=== PATIENT | male | born 1980 | race Caucasian/White ===

== ENCOUNTER 2019-04-16 15:33 | Emergency (ER) | payer BC, OTHER ==
[~2019-04-16] VITALS: Ht 172.7 cm; Wt 63.5 kg
--- NOTE | 2019-04-16 15:48 | NUR ---
PT SENT TO LOBBY TO WAIT FOR AVAILABLE BED.
[2019-04-16 15:49] VITALS: BP 126/84
--- NOTE | 2019-04-16 15:50 | NUR ---
PATIENT PRESENTS TO ED WITH COMPLAINT OF VOMITING SINCE YESTERDAY. REPORTS WEAKNESS. REPORTS THROAT PAIN FROM VOMITING. BLOOD GLUCOSE 309, HR 113. DENIES FEVER, DIARRHEA, CONTIPATION OR DYSURIA.SKIN IS PINK/WARM/DRY; AAOX4 WITH EVEN AND STEADY GAIT; LUNGS CLEAR BL; HR EVEN AND REGULAR; PT DENIES ANY FEVER, CP, SOB, OR COUGH AT THIS TIME; PATIENT STATES PAIN OF 9/10 AT THIS TIME; VSS; PATIENT POSITIONED FOR COMFORT; HOB ELEVATED; BEDRAILS UP X2; BED DOWN. ER MD MADE AWARE OF PT STATUS. HX DM RX METFORMIN
--- NOTE | 2019-04-16 16:23 | NUR ---
PT TAKEN TO BED 3.
[2019-04-16] MEDS ORDERED: NACL 0.9% 2,000 ML IV SCH (16:42)
[2019-04-16] MEDS ORDERED: NACL 0.9% 1,000 ML IV ONE (16:42)
--- NOTE | 2019-04-16 16:44 | NUR ---
Dr. Carpenter evaluating patient at bedside.
[2019-04-16] MEDS ORDERED: METOCLOPRAMIDE 10 MG/2 ML INJ VIAL IVP ONE (16:45)
[2019-04-16] MEDS ORDERED: ONDANSETRON 4 MG/2 ML VIAL IVP ONE (16:45)
[2019-04-16] MEDS ORDERED: FAMOTIDINE 20 MG/2 ML VIAL IVP ONE (16:45)
--- NOTE | 2019-04-16 17:00 | NUR ---
pest control technician at bedside.
[2019-04-16 17:29] LABS: BASOPHILS % (AUTO) 0.3 % (0.0-2.0); EOSINOPHILS % (AUTO) 0.1 % (0.0-4.0); HEMOGLOBIN 14.4 g/dL (12.0-18.0); LYMPHOCYTES # (AUTO) 1.3 K/uL (2.0-11.5); LYMPHOCYTES % (AUTO) 8.6 % (20.5-51.1); MEAN CORPUSCULAR HEMOGLOBIN 29 pg (27-31); MEAN CORPUSCULAR HGB CONC 34 g/dL (33-37); MEAN CORPUSCULAR VOLUME 85.7 fL (80-94); MONOCYTES # (AUTO) 0.8 K/uL (0.8-1.0); MONOCYTES % (AUTO) 5.5 % (1.7-9.3); NEUTROPHILS % (AUTO) 85.5 % (42.2-75.2); PLATELET COUNT (AUTO) 360 K/uL (140-450); RED BLOOD CELL COUNT(AUTO) 5.02 MIL/uL (4.20-6.10); RED CELL DISTRIBUTION WIDTH 13.3 % (11.6-13.7); WHITE BLOOD COUNT (AUTO) 15.2 K/uL (4.8-10.8)
--- NOTE | 2019-04-16 17:44 | NUR ---
Patient returned from CT scan. RN re-evaluating patient at bedside.
[2019-04-16 18:05] LABS: CARBON DIOXIDE 31.1 mmol/L (21-32); CHLORIDE 98 mmol/L (98-107); CREATININE 1.2 mg/dL (0.7-1.3); GFR ARICAN-AMERICAN 88 mL/min (>90); GLUCOSE 364 mg/dL (74-106); POTASSIUM 4.1 mmol/L (3.5-5.1); SODIUM SERUM 142 mmol/L (136-145); UREA NITROGEN, BLOOD 33 mg/dL (7-18)
[2019-04-16 18:07] LABS: ACETONE, SERUM NEGATIVE (NEGATIVE)
[2019-04-16 18:10] LABS: ALBUMIN 4.1 g/dL (3.4-5.0); AMYLASE 67 U/L (25-115); ASPARTATE AMINOTRANSFERASE 14 U/L (15-37); LIPASE 72 U/L (73-393); MAGNESIUM 2.6 mg/dL (1.8-2.4); TOTAL BILIRUBIN 0.7 mg/dL (0.0-1.0)
[2019-04-16 18:32] LABS: APPEARANCE,URINE CLEAR (CLEAR); BILIRUBIN,URINE NEGATIVE (NEGATIVE); BLOOD, URINE 1+ (NEGATIVE); LEUKOCYTE ESTERASE ,URINE NEGATIVE (NEGATIVE); NITRITE, URINE NEGATIVE (NEGATIVE); UGLUCOSE 3+ (NEGATIVE)
[2019-04-16 18:34] LABS: BARBITURATE, URINE NEG. ng/ml (NEG <=200); BENZODIAZEPINE, URINE NEG. ng/mL (NEG <=200); CANNABINOID, URINE NEG. ng/mL (NEG <=50); COCAINE, URINE NEG. ng/mL (NEG <=300); OPIATE, URINE NEG. ng/mL (NEG <=2000); PHENCYCLIDINE SCREEN,URINE NEG. ng/mL (NEG <=25)
[2019-04-16 18:38] LABS: COLOR,URINE STRAW (YELLOW)
[2019-04-16 18:39] LABS: RBC,URINE NONE SEEN /HPF (0-5); WBC,URINE NONE SEEN /HPF (0-5)
[2019-04-16 19:06] VITALS: BP 124/82
--- NOTE | 2019-04-16 19:08 | NUR ---
Patient discharged with v/s stable. Written and verbal after care instructions given and explained. Patient alert, oriented and verbalized understanding of instructions. Ambulatory with steady gait. All questions addressed prior to discharge. ID band removed. Patient advised to follow up with PMD. Rx of REGLAN given. Patient educated on indication of medication including possible reaction and side effects. Opportunity to ask questions provided and answered.
== END 2019-04-16 19:07 | disposition home or self-care (01) ==
LOC: MED 15:33
DX: E11.43 Type 2 diabetes mellitus with diabetic autonomic (poly)neuropathy (principal); K31.84 Gastroparesis; E11.65 Type 2 diabetes mellitus with hyperglycemia
CPT/HCPCS: 36415; 36600; 71045; 74176; 80053; 80305; 81001; 82009; 82150; 82803; 83036; 83605; 83690; 83735; 85025; 86140; 96361; 96374; 96375; 99284; G0482; J2405; J2765; J3490; J7030; Q0092

== ENCOUNTER 2019-06-21 17:46 | Inpatient (IN) | payer BC, OTHER ==
[~2019-06-21] VITALS: Ht 172.7 cm; Wt 74.8 kg
[2019-06-21 17:54] VITALS: BP 122/76
--- NOTE | 2019-06-21 17:59 | NUR ---
PT PLACED IN BED 5 BY EMS.
[2019-06-21] MEDS ORDERED: NACL 0.9% 2,000 ML IV ONE (18:05)
--- NOTE | 2019-06-21 18:10 | NUR ---
PT BIBA C/O GENERALIZED WEAKNESS, SORE THROAT, AND N/V X THIS MORNING. BS 513 UPON ARRIVAL. MEDHX:DM RX:METFORMIN
[2019-06-21] MEDS ORDERED: NACL 0.9% 1,000 ML IV SCH (18:19)
[2019-06-21] MEDS ORDERED: ONDANSETRON 4 MG/2 ML VIAL IVP ONE (18:20)
--- NOTE | 2019-06-21 18:26 | NUR ---
PROVIDED PT WITH URINAL
--- NOTE | 2019-06-21 19:20 | NUR ---
RECEIVED REPORT FROM GEOVANNA MANLEY.
[2019-06-21 19:25] LABS: BASOPHILS % (AUTO) 0.1 % (0.0-2.0); HEMATOCRIT 39.6 % (36-52); HEMOGLOBIN 13.2 g/dL (12.0-18.0); LYMPHOCYTES # (AUTO) 0.9 K/uL (2.0-11.5); LYMPHOCYTES % (AUTO) 5.4 % (20.5-51.1); MEAN CORPUSCULAR HEMOGLOBIN 28 pg (27-31); MEAN CORPUSCULAR HGB CONC 33 g/dL (33-37); MEAN CORPUSCULAR VOLUME 84.7 fL (80-94); MONOCYTES # (AUTO) 1.1 K/uL (0.8-1.0); MONOCYTES % (AUTO) 6.6 % (1.7-9.3); NEUTROPHILS # (AUTO) 14.7 K/uL (1.8-7.7); NEUTROPHILS % (AUTO) 87.9 % (42.2-75.2); PLATELET COUNT (AUTO) 345 K/uL (140-450); RED BLOOD CELL COUNT(AUTO) 4.67 MIL/uL (4.20-6.10); RED CELL DISTRIBUTION WIDTH 13.1 % (11.6-13.7); WHITE BLOOD COUNT (AUTO) 16.7 K/uL (4.8-10.8)
--- NOTE | 2019-06-21 19:30 | NUR ---
RECEIVED PT AND PT'S SISTER AT BEDSIDE. WITH ENDORSEMENT FROM CONCEPCION ADAM NURSE THAT USD ABDOMEN IS TO BE DONE. ORDER WAS JUST PLACED RECENTLY AT 0730 PM.+COMPLAINED RECEIVED FROM PT THAT NOTHING WAS DONE TO THEM SINCE THIS MORNING, PT UNCOOPERATIVE BUT ABLE TO TALK TO PT AWAKE, ALERT ORIENTED X 3. AND THAT PT IS STILL VOMITING. W/ IV ON LEFT AC G 22, LR AT 80CC/HR, INFUSING WELL. Addendum: 06/22/19 at 7695 by Vivian Pérez RN DELETE NOTE
[2019-06-21 19:49] LABS: ALBUMIN 3.4 g/dL (3.4-5.0); ANION GAP 18.7 (8-16); CARBON DIOXIDE 28.5 mmol/L (21-32); CREATININE 1.3 mg/dL (0.7-1.3); POTASSIUM 4.2 mmol/L (3.5-5.1); TOTAL BILIRUBIN 0.6 mg/dL (0.0-1.0)
[2019-06-21] MEDS ORDERED: NACL 0.9% 1,000 ML IV ONE ×3 (20:10→23:15)
[2019-06-21] MEDS ORDERED: cefTRIAXone 1,000 MG VIAL ONE (20:23)
[2019-06-21] MEDS ORDERED: INSULIN REGULAR, HUMAN 100 UNIT/ML VIAL SUBQ ONE (20:25)
--- NOTE | 2019-06-21 20:53 | NUR ---
X-Ray at bedside.
[2019-06-21 21:34] LABS: APPEARANCE,URINE CLEAR (CLEAR); BILIRUBIN,URINE NEGATIVE (NEGATIVE); BLOOD, URINE 1+ (NEGATIVE); COLOR,URINE YELLOW (YELLOW); LEUKOCYTE ESTERASE ,URINE NEGATIVE (NEGATIVE); NITRITE, URINE NEGATIVE (NEGATIVE); PH,URINE 5.5 (5.0-9.0); UGLUCOSE 3+ (NEGATIVE)
[2019-06-21 21:38] LABS: RBC,URINE 0-5 /HPF (0-5); WBC,URINE 0 /HPF (0-5)
[2019-06-21 21:39] LABS: HYALINE CASTS, URINE 0-10 /LPF (None Seen)
[2019-06-21] MEDS ORDERED: DEXTROSE 50% 50 ML SYR IVP PRN ×2 (22:30→23:15)
[2019-06-21] MEDS ORDERED: MORPHINE SULFATE 2 MG/ML SYR IVP PRN (22:30)
[2019-06-21] MEDS ORDERED: LEVOFLOXACIN 500 MG/D5W PREMIX 100 ML IV SCH (22:30)
[2019-06-21] MEDS ORDERED: INSULIN LISPRO SLIDING SCALE 100 UNITS/ML VIAL SUBQ PRN (22:30)
[2019-06-21] MEDS ORDERED: ONDANSETRON 4 MG/2 ML VIAL IVP PRN (22:30)
[2019-06-21] MEDS ORDERED: ACETAMINOPHEN 325 MG TAB PO PRN ×2 (22:30→23:15)
[2019-06-21] MEDS ORDERED: POTASSIUM CHL 20 MEQ/NACL 0.9% 1,000 ML IV ONE ×2 (22:40→23:15)
--- NOTE | 2019-06-21 22:42 | NUR ---
PT LAYING IN BED, FAMILY AT BEDSIDE, PT SLEEPING, AROUSABLE TO NAME, RR EVEN AND UNLABORED. VSS. ALL NEEDS MET.
--- NOTE | 2019-06-21 23:10 | NUR ---
RECEIVED BEDSIDE REPORT FROM ED NURSE EMETERIO. PATIENT ARRIVED TO UNIT VIA GURNEY WITH FAMILY MEMBERS AT BEDSIDE. PATIENT IS AMBULATORY WITH ASSIST. NO SOB OR DISTRESS NOTED. ON ROOM AIR. IV ACCESS ON LEFT AC 22 GAUGE AND RIGHT AC 20 GAUGE. PATENT AND INTACT. INITIAL ASSESSMENT DONE. INITIAL VITALS DONE. MRSA SWAB DONE AND SENT TO LAB. BOARD UPDATED. PATIENT ORIENTED TO ROOM. BED IN LOW, SAFETY MEASURES IN PLACE. CALL LIGHT PLACED WITHIN PATIENT REACH. WILL CONTINUE TO MONITOR PATIENT.
--- NOTE | 2019-06-21 23:10 | NUR ---
Patient will be admitted to care of DR. SCOTT . Admited to TELE. Will go to room 111A . Belongings list completed. Report to GEOVANNA HUTCHINSON .
[2019-06-21] MEDS: LEVOFLOXACIN 500 MG/D5W PREMIX 100 ML IV SCH (23:43)
[2019-06-22] VITALS: BP 128/74
--- NOTE | 2019-06-22 00:10 | NUR ---
SPOKE WITH DR. ASH OVER THE PHONE. NEW ORDER FOR CCHO 60 GRAM DIET AND FOR POTASSIUM CHLORIDE 20MEQ IN NaCl 0.9% 1,000ml IV TO BE SCHEDULED CONTINUOUS INSTEAD OF A ONE TIME DOSE. ORDERS CARRIED OUT.
[2019-06-22] MEDS: ONDANSETRON 4 MG/2 ML VIAL IVP PRN ×4 (02:37→16:19)
--- NOTE | 2019-06-22 02:37 | NUR ---
PRN ZOFRAN GIVEN AT THIS TIME FOR VOMITING. NO DISTRESS NOTED. WILL CONTINUE TO MONITOR PATIENT.
[2019-06-22] MEDS: POTASSIUM CHL 20 MEQ/NACL 0.9% 1,000 ML IV SCH ×2 (02:58→10:10)
[2019-06-22 04:00] VITALS: BP 149/93
--- NOTE | 2019-06-22 05:23 | NUR ---
ROUNDS DONE. VISIBLE CHEST RISE AND FALL NOTED. WILL CONTINUE TO MONITOR PATIENT.
[2019-06-22] MEDS: PANTOPRAZOLE 40 MG TABEC PO SCH (05:40)
[2019-06-22] MEDS: INSULIN LISPRO SLIDING SCALE 100 UNITS/ML VIAL SUBQ PRN ×3 (06:40→16:31)
--- NOTE | 2019-06-22 06:41 | NUR ---
PRN ZOFRAN GIVEN AT THIS TIME FOR VOMITING. NO DISTRESS NOTED. WILL CONTINUE TO MONITOR PATIENT.
[2019-06-22] MEDS: BLOOD GLUCOSE MONITORING 1 DEV DEV FS SCH ×4 (06:48→21:00)
--- NOTE | 2019-06-22 06:51 | NUR ---
BLOOD GLUCOSE RESULT OF 313 WITH 8 UNITS OF REGULAR INSULIN ADMINISTERED. WILL CONTINUE TO MONITOR PATIENT.
--- NOTE | 2019-06-22 06:53 | NUR ---
PATIENT RESTING ON BED. NO DISTRESS NOTED.CALL LIGHT PLACED WITHIN PATIENT REACH. WILL ENDORSE TO AM SHIFT NURSE FOR CONTINUITY OF CARE.
--- NOTE | 2019-06-22 07:15 | NUR ---
RECEIVED REPORT FROM GEOVANNA HUTCHINSON. PT ORIENTED X4, AROUSABLE TO NAME. PT ON TELE MONITOR, RHYTHM IS ST. IV ON LT AC 22 GA RUNNING IVF PER ORDER. RESPIRATIONS EVEN AND UNLABORED ON RA. ABD SOFT, ACTIVE BS. SKIN IS INTACT, WARM TO TOUCH. SAFETY MEASURES IN PLACE, CALL LIGHT WITHIN REACH. REVIEWED POC WITH PT, PT VERBALIZED UNDERSTANDING AND WILL NEED REINFORCEMENT.
[2019-06-22] MEDS ORDERED: BLOOD GLUCOSE MONITORING 1 DEV DEV FS SCH (07:30)
[2019-06-22 08:00] VITALS: BP 121/82
[2019-06-22] MEDS: MORPHINE SULFATE 2 MG/ML SYR IVP PRN ×2 (08:05→16:21)
[2019-06-22] MEDS: ENOXAPARIN 40 MG/0.4 ML SYR SUBQ SCH (08:14)
--- NOTE | 2019-06-22 08:14 | NUR ---
ADMINISTERED LOVENOX SC TO LLQ ABDOMEN, PT IS AWARE OF INDICATIONS AND POTENTIAL SIDE EFFECTS.
--- NOTE | 2019-06-22 08:30 | NUR ---
PATIENT HAS BEEN SCREENED AND CATEGORIZED MODERATE NUTRITION RISK. PATIENT WILL BE SEEN WITHIN 3-5 DAYS OF ADMISSION. 06/24/19 06/26/[address]
[2019-06-22] MEDS ORDERED: PANTOPRAZOLE 40 MG TABEC PO SCH (09:00)
[2019-06-22] MEDS ORDERED: ENOXAPARIN 40 MG/0.4 ML SYR SUBQ SCH (09:00)
--- NOTE | 2019-06-22 10:18 | NUR ---
PT HAS NO C/O AT THIS TIME, FAMILY AT BEDSIDE.
[2019-06-22] MEDS: LACTATED RINGERS 1,000 ML IV SCH ×2 (11:22→23:33)
[2019-06-22 12:00] VITALS: BP 139/87
[2019-06-22] MEDS: METOCLOPRAMIDE 10 MG/2 ML INJ VIAL IVP SCH ×2 (12:09→22:20)
--- NOTE | 2019-06-22 12:09 | NUR ---
ADMINISTERED REGLAN FOR N/V, PT VERBALIZES UNDERSTANDING OF INDICATION AND POTENTIAL SIDE EFFECTS.
--- NOTE | 2019-06-22 14:00 | NUR ---
PT RESTING IN SUPINE POSITION, FAMILY AT BEDSIDE. NO SIGNS OF DISTRESS AT THIS TIME.
[2019-06-22 16:00] VITALS: BP 144/86
--- NOTE | 2019-06-22 16:00 | NUR ---
PT HAD MULTIPLE EPISODES OF CLEAR THIN LIQUID VOMIT, TOTAL OF 9 OUNCES. WILL CONTINUE TO MONITOR.
--- NOTE | 2019-06-22 18:00 | NUR ---
PT RESTING COMFORTABLY IN SUPINE POSITION, FAMILY AT BEDSIDE.
[2019-06-22] MEDS ORDERED: ACETAMINOPHEN 325 MG TAB PO PRN (19:30)
--- NOTE | 2019-06-22 19:30 | NUR ---
RECEIVED PT AND PT'S SISTER AT BEDSIDE. WITH ENDORSEMENT FROM [facility]CEPC[facility] ADAM NURSE THAT USD ABDOMEN IS TO BE DONE. ORDER WAS JUST PLACED RECENTLY AT 0730 PM. COMPLAINED RECEIVED FROM PT THAT NOTHING WAS DONE TO THEM SINCE THIS MORNING, PT UNCOOPERATIVE BUT ABLE TO TALK TO PT AWAKE, ALERT ORIENTED X 3., PT UNABLE TO SPEAK MUCH BEC PT IS VOMITING. W/ IV ON LEFT AC G 22, LR AT 80CC/HR, INFUSING WELL. PLACED ON FALL RISK MORPHIONE WAS GIVEN EARLIER PER PREVIOUS NURSE AND PT IS SLEEPY.PLACED CALL LIGHT WITHIN REACH Addendum: 06/23/19 at 0012 by Vivian Pérez RN PLS DELETE WRONG TIME
--- NOTE | 2019-06-22 19:38 | NUR ---
PT ENDORSED TO PORT DRIER NURSE NEHEMIAH. PT HAS NO SIGNS OF DISTRESS AT THIS TIME.
--- NOTE | 2019-06-22 19:39 | NUR ---
RECEIVED PT AND PT'S SISTER AT BEDSIDE. WITH ENDORSEMENT FROM CONCEPCION ADAM NURSE THAT USD ABDOMEN IS TO BE DONE. ORDER WAS JUST PLACED RECENTLY AT 0730 PM. COMPLAINED RECEIVED FROM PT THAT NOTHING WAS DONE TO THEM SINCE THIS MORNING, PT UNCOOPERATIVE BUT ABLE TO TALK TO PT AWAKE, ALERT ORIENTED X 3., PT UNABLE TO SPEAK MUCH BEC PT IS VOMITING. W/ IV ON LEFT AC G 22, LR AT 80CC/HR, INFUSING WELL. PLACED ON FALL RISK MORPHIONE WAS GIVEN EARLIER PER PREVIOUS NURSE AND PT IS SLEEPY.PLACED CALL LIGHT WITHIN REACH
[2019-06-22 20:00] VITALS: BP 143/89
--- NOTE | 2019-06-22 20:28 | NUR ---
CALLED DR. SCOTT, PT REQUESTS TO BE TRANSFERRED TO [facility]. AWAITING CALL BACK
--- NOTE | 2019-06-22 20:40 | NUR ---
CALLED BACK AND SAID DOES NOT WANT TO DO ANYTHING W/ THE TRANSFER.
--- NOTE | 2019-06-22 22:39 | NUR ---
PT VOMITED 3 X ONE AT 7:30 PM; 9:30 PM AND NOW AT 10:45PM
[2019-06-22] MEDS: LEVOFLOXACIN 500 MG/D5W PREMIX 100 ML IV SCH (23:18)
--- NOTE | 2019-06-22 23:20 | NUR ---
SISTERS HERE, LEFT EMILY THE CHAIN HOIST OPERATOR SINCE OTHER SISTER SPEAKS SWEDISH. PLS INFORM EMILY FOR ANY PROBLEMS AND TO UPDATE THEM , USE BARN WORKER PHONE FOR THE SWEDISH-SPEAKING SISTER.
--- NOTE | 2019-06-22 23:25 | NUR ---
PT SISTER BEEN ASKING ME FOR QUESTIONS WHILE MEDICATING PATIENT;EXPLAINED TO THE SISTER THAT I'M MEDICATING. SISTER SAYING THAT SHE IS MAD AT ME. ASKED THE SISTER THE REASON WHY SHE IS MAD AT ME, AND SHE WON'T ANSWER. CHARGE NURSE WILL HAVE ANOTHER NURSE TAKE CARE OF HER BROTHER.
--- NOTE | 2019-06-22 23:30 | NUR ---
ENDORSED TO NEXT NURSE FOR CONTINUITY OF CARE; TO INFORM AM NURSE TO USE COSMETOLOGIST PHONE FOR SISTER WHO WILL BE AT BEDSIDE WHEN THE DRSawyer COMES.
--- NOTE | 2019-06-22 23:33 | NUR ---
INTRODUCED THE NEW NURSE HARMEET TO THE SISTER, SHE WAS ABOUT TO LEAVE. SISTER APOLOGIZED FOR BEING HARSH TO ME.ACKNOWLEDGED
--- NOTE | 2019-06-22 23:35 | NUR ---
RECEIVED BEDSIDE REPORT FROM GEOVANNA CERNA, FOR PT'S CONTINUITY OF CARE. PT IS ASLEEP WITH NO SIGNS OF DISTRESS. WILL CONTINUE TO MONITOR PT.
[2019-06-23] VITALS: BP 146/95
--- NOTE | 2019-06-23 00:30 | NUR ---
VS CHECKED AND CHARTED. PT ASLEEP, DENIES PAIN AFTER VS CHECK.
--- NOTE | 2019-06-23 02:00 | NUR ---
PT ASLEEP WITH NO SIGNS OF DISTRESS. WILL CONTINUE TO MONITOR PT.
--- NOTE | 2019-06-23 03:04 | NUR ---
RECEIVED CALL FROM LAB, [facility], FOR PRELIMINARY BLOOD CULTURE RESULT. BLOOD CULTURE HAS GRAM POSITIVE COCCI IN [place]. NOT ON [facility] YET, AWAITING FOR [facility] TO PUT IN THE RESULTS, BUT ALREADY CALLED LAB HERE. WILL PAGE FOR REPORTING.
--- NOTE | 2019-06-23 03:35 | NUR ---
PT STATED VOMITED X 2 AGAIN. REQUESTED FOR ANTI NAUSEA/VOMITING MEDICATION. ADMINISTERED PRN IVP MEDICATION ORDERED. PT'S NEEDS MET. PT REFUSED TEMP TO BE TAKEN, VS CHECKED AND CHARTED. WILL CONTINUE TO MONITOR PT.
[2019-06-23] MEDS: ONDANSETRON 4 MG/2 ML VIAL IVP PRN (03:37)
[2019-06-23 04:00] VITALS: BP 141/81
--- NOTE | 2019-06-23 05:30 | NUR ---
NO CALL BACK FROM DR. SCOTT YET. WILL PAGE AGAIN.
[2019-06-23] MEDS: PANTOPRAZOLE 40 MG TABEC PO SCH (05:55)
[2019-06-23] MEDS: METOCLOPRAMIDE 10 MG/2 ML INJ VIAL IVP SCH ×2 (05:55→12:12)
[2019-06-23] MEDS: BLOOD GLUCOSE MONITORING 1 DEV DEV FS SCH ×2 (06:04→12:08)
--- NOTE | 2019-06-23 06:10 | NUR ---
ADMINISTERED SCHEDULED PO AND IVP MEDICATIONS ORDERED. BS CHECKED AND CHARTED. ADMINISTERED PRN SUBQ INSULIN PER PROTOCOL. PT TOLERATED IT WELL. WILL ENDORSE TO AM SHIFT RN FOR PT'S CONTINUITY OF CARE.
[2019-06-23] MEDS: INSULIN LISPRO SLIDING SCALE 100 UNITS/ML VIAL SUBQ PRN ×2 (06:11→12:11)
--- NOTE | 2019-06-23 06:30 | NUR ---
PAGED DR SCOTT AGAIN TO REPORT RESULT OF PRELIMINARY BLOOD CULTURE. NO CALL BACK YET. ENDORSED TO AM SHIFT RN.
[2019-06-23 07:07] LABS: BASOPHILS # (AUTO) 0.1 K/uL (0.00-0.22); BASOPHILS % (AUTO) 0.5 % (0.0-2.0); EOSINOPHILS % (AUTO) 0.1 % (0.0-4.0); HEMATOCRIT 35.4 % (36-52); HEMOGLOBIN 11.8 g/dL (12.0-18.0); LYMPHOCYTES # (AUTO) 1.7 K/uL (2.0-11.5); LYMPHOCYTES % (AUTO) 13.1 % (20.5-51.1); MEAN CORPUSCULAR HEMOGLOBIN 29 pg (27-31); MEAN CORPUSCULAR HGB CONC 33 g/dL (33-37); MEAN CORPUSCULAR VOLUME 85.5 fL (80-94); MONOCYTES # (AUTO) 0.8 K/uL (0.8-1.0); NEUTROPHILS # (AUTO) 10.2 K/uL (1.8-7.7); NEUTROPHILS % (AUTO) 80.3 % (42.2-75.2); PLATELET COUNT (AUTO) 270 K/uL (140-450); RED BLOOD CELL COUNT(AUTO) 4.14 MIL/uL (4.20-6.10); RED CELL DISTRIBUTION WIDTH 12.8 % (11.6-13.7); WHITE BLOOD COUNT (AUTO) 12.7 K/uL (4.8-10.8)
--- NOTE | 2019-06-23 07:20 | NUR ---
RECEIVED PT FROM DESIGN QUALITY ENGINEER NURSE, HARMEET, PT IS LETHARGIC BUT AROUSABLE, PERIPHERAL ,TOM ON THE LEFT AC G. 22 WITH LR INFUSING AT 80ML/HR, SISTER ON THE BEDSIDE, SIDE RAILS ARE UP AND CALL LIGHT WITHIN REACH, PT DENIES FEELING OF NAUSEA AND PAIN, SAFETY PRECAUTION ENFORCED, BED IN LOW POSITION, WILL CONTINUE TO MONITOR PT.
[2019-06-23 07:25] LABS: ALBUMIN 2.7 g/dL (3.4-5.0); CREATININE 0.8 mg/dL (0.7-1.3); POTASSIUM 4.2 mmol/L (3.5-5.1); TOTAL BILIRUBIN 0.5 mg/dL (0.0-1.0)
[2019-06-23 08:00] VITALS: BP 131/80
--- NOTE | 2019-06-23 08:03 | NUR ---
TOTAL EMESIS X 5, MINIMAL AMOUNT, APPROX 70 ML TOTAL Addendum: 06/23/19 at 0804 by Constance Gregg RN CORRECTED TIME: 629
[2019-06-23 08:17] LABS: CARBON DIOXIDE 25.2 mmol/L (21-32)
[2019-06-23] MEDS: ENOXAPARIN 40 MG/0.4 ML SYR SUBQ SCH (08:57)
--- NOTE | 2019-06-23 08:57 | NUR ---
ADMINISTERED MORNING MEDICATION. PARAMETER CHECKED, PLATELETS 270. MEDICATION EDUCATION WAS GIVEN TO PT. PT VERBALIZED UNDERSTANDING. WILL MONITOR PT.
--- NOTE | 2019-06-23 10:50 | NUR ---
DC PLANNING 38 YRS OLD MALE PATIENT WAS ADMITTED FROM HOME WITH A DX OF INTRACTABLE VOMITING, UNCONTROLLED DM AND LACTIC ACIDOSIS.LACTIC ACID 3.6 ,BS 477 , WBC 16.7 ADMINISTERED IVF , LEVAQUIN ABX SLIDING SCALE COVERAGE REGULAR INSULIN AND REGLAN FOR VOMITING.DC PLAN TO GO HOME WHEN STABLE .CM TO FOLLOW
[2019-06-23] MEDS ORDERED: METO-485 PO (11:24)
[2019-06-23] MEDS: LACTATED RINGERS 1,000 ML IV SCH (11:55)
[2019-06-23 12:00] VITALS: BP 139/90
--- NOTE | 2019-06-23 12:08 | NUR ---
BLOOD GLUCOSE CHECK DONE AND RESULT IS 193, AND 2 UNITS INSULIN WAS GIVEN TO THE RT UA AND TOLERATED IT, WILL MONITOR PT.
--- NOTE | 2019-06-23 13:05 | NUR ---
WYATT Assessment/Discharge Plan Name: Kobi Styles Home Relationship: father Pre-Admission Living Arrangements: Lives with Other Other: father: Kobi Styles and mother: Beth Styles Prior ADL Independent Current Home Health Name/Tel: N/A Current DME/02 Name/Tel: blood glucose monitor Current Hospice Name/Tel: N/A Current Dialysis Name/Tel: N/A Healthcare Decision Maker: Patient Advance Directive No Information Taught: Community Resources Person Taught: Parent Teaching Tools: Community Resources Verbal Factors Affecting Learning: None Participation Level: Active Evaluation: Gestures Understanding Verbalizes Understanding Educator: WYATT Bianchi Discipline: Case Mgt/Social Svcs Tentative Discharge Plan Summary: Patient is a 38 year old male admitted for intractable vomiting, uncontrolled dm, and lactic acidosis. Patient was sleeping and would not wake up for assessment. I conducted assessment by interviewing patient's parents Beth and Kobi. Beth and Kobi speak Luxembourgish. Patient lives at home with them and may return home upon discharge. Patient is independent with ADLs. Patient's pcp is Carmine Dupont and he does not have any difficulty filling prescriptions at pharmacy. He drives to pcp's office. I provided them with education on [employer], www.[employer].org for community resources. They do not have any questions/concerns at this time. Tour Driver and/or Direct Care Supervisor will follow up as needed. Signature: WYATT Bianchi Date: Jun 22, 2019
--- NOTE | 2019-06-23 15:10 | NUR ---
DISCHARGED PT TO HOME VIA WHEELCHAIR WITH FAMILY, DISCHARGED AND MEDICATION PRESCRIPTIONS INSTRUCTIONS WERE GIVEN TO PT AND VERBALIZED UNDERSTANDING, DIABETIC DIET MANAGEMENT TEACHING WAS TOLD TO PT WELL AND VERBALIZED UNDERSTANDING, IV LINE AND ARM BANDS REMOVED AND PT IS STABLE AT THIS TIME.
== END 2019-06-23 15:10 | disposition home or self-care (01) | DRG 48 ==
LOC: MED 17:46 → MTU 22:39 → MED 23:02
PROVIDERS: ADMIT Internal Medicine Pulmonary Disease; ATTEND Internal Medicine Pulmonary Disease
DX: E11.43 Type 2 diabetes mellitus with diabetic autonomic (poly)neuropathy (principal); E87.2 Acidosis; E11.65 Type 2 diabetes mellitus with hyperglycemia; K31.84 Gastroparesis; E86.0 Dehydration
CPT/HCPCS: 36415; 71045; 76700; 80053; 81001; 82009; 82150; 82948; 83605; 83690; 85025; 87040; 87081; 87804; 96361; 96365; 96372; 96375; 99285; J0696; J1650; J1815; J1956; J2270; J2405; J2765; J7030; J7120; Q0092